=== PATIENT | male | born 1955 | race Caucasian/White ===

== ENCOUNTER 2022-12-09 22:19 | Emergency (ER) | payer MEDICARE, OTHER, SELFPAY ==
--- NOTE | ~2022-12-09 | CT_ITS ---
EXAMINATION: CT brain wo con DATE: 12/10/2022 01:06 INDICATION: Fall. Head laceration. One episode of emesis. TECHNIQUE: Computed tomography (CT) of the head was performed without intravenous contrast. The mA wa s adjusted according to patient size. Iterative reconstruction technique was employed. Exam dose: 60 5.33 mGy-cm total exam DLP. COMPARISON: 08/01/2003 CT brain FINDINGS: No intracranial mass lesion or hemorrhage or cerebrovascular accident is detected. No midli ne shift or mass effect. Intracranial cerebral atherosclerosis is noted. Is nonspecific diminished attenuation of the cerebral white matter, likely due to chronic small vessel ischemic changes. No subdural or epidural hematoma is detected. Mild right frontal cephalohematoma. Numerous subcutaneous calcifications of the scalp, also present on 08/01/2003, chronic. No fracture or bone destruction of the cranial vault. The mastoid air cells and included paranasal sinuses are tonya lly developed and aerated. IMPRESSION: Mild right lateral frontal cephalohematoma No coup or contrecoup intracranial injury or other acute intracranial finding is noted. Reviewed, dictated and finalized at [facility]. Reviewed, dictated and finalized at [facility]. IMPRESSION: Mild right lateral frontal cephalohematoma No coup or contrecoup intracranial injury or other acute intracranial finding i s noted.
[2022-12-09 22:27] VITALS: BP 149/82; PULSE 70; RESP 18; TEMP 36.5; O2SAT 97
[2022-12-10] VITALS (14 sets, daily range): BP systolic 119–149; BP diastolic 75–94; PULSE 66–96; RESP 14–20; O2SAT 93–98
--- NOTE | 2022-12-10 00:37 | PC.NURSE ---
This RN ambulated pt back to room. Upon getting dressed into gown pt has large bile emesis. Pt states he has not been sick. Pt not currently having any pain. Pt denies loc after fall and denies being on blood thinners. Pt a&o x4. Santi PHILIP made aware.
[2022-12-10] MEDS: LIDO 1%/EPINEPHRINE 1:100,000 20 ML VIAL 10 ML INFILTRATE (00:52)
--- NOTE | 2022-12-10 01:52 | ED.GENADULT ---
HPI - General Adult General Chief complaint: Wound/Laceration <KEVIN Davis Last Filed: 12/10/22 03:13> Stated complaint: head injury, head lac, No LOC <KEVIN Davis Last Filed: 12/10/22 03:13> Time Seen by Provider: 12/10/22 00:30 <Santi Norris PA-C - Last Filed: 12/10/22 03:13> Source: patient <KEVIN Davis Last Filed: 12/10/22 03:13> Mode of arrival: ambulatory <KEVIN Davis Last Filed: 12/10/22 03:13> Limitations: no limitations <Santi Norris PA-C - Last Filed: 12/10/22 03:13> History of Present Illness HPI narrative: This is a 67-year-old male with PMH of sciatica who presents to the ED with chief complaint of a head injury that occurred just prior to arrival. Patient states that he was walking from the bathroom back to bed when he felt his left foot get caught and it caused him to go down headfirst into the corner of the dresser. He reports a laceration to the left side of the forehead. Denies LOC. Denies any subsequent numbness, weakness or any further site of pain or injury. He does not take blood thinners. Well patient is being evaluated by nursing, he did have an episode of emesis. Patient denies any current nausea at this point. <Santi Norris PA-C - Last Filed: 12/10/22 03:13> Related Data Allergies/adverse reactions: Allergies Allergy/AdvReac Type Severity Reaction Status Date / Time No Known Allergies Allergy Verified 12/09/22 22:36 <KEVIN Davis Last Filed: 12/10/22 03:13> Review of Systems Review of Systems: All systems as dictated in HPI <KEVIN Davis Last Filed: 12/10/22 03:13> Exam Narrative: GENERAL: Well-appearing, well-nourished, and in no acute distress. HEAD: Normocephalic, atraumatic. EYES: PERRLA and EOMI. ENT: Nares clear, no rhinorrhea or epistaxis. Mucous membranes moist. Oropharynx without tonsillar hypertrophy exudate or other lesions. NECK: Supple. No adenopathy or masses. CHEST: No respiratory distress. Clear to auscultation. No wheezes rales or rhonchi HEART: Regular rate and rhythm. No murmur heard. Normal peripheral pulses. ABDOMEN: Soft, nontender, nondistended, normal active bowel sounds. MSK: Normal range of motion. No edema. SKIN: There is a 2.5 cm linear laceration to the right forehead. Bleeding controlled. NEURO: Alert and oriented x3. No focal deficits. 5 out of 5 strength and sensation in the upper and lower extremities. PSYCH: Normal mood and affect. <Santi Norris PA-C - Last Filed: 12/10/22 03:13> Course P[employer]ED SUPERVISOR/PA Physician Supervision I agree with midlevel documentation; I performed the medical decision making component of this evaluation. Ct scans pending <Nidhi Phelps MD - Last Filed: 12/10/22 06:19> Reevaluation(s) Reevaluation #1: I evaluated the patient. He is resting comfortably. I looked at CT head which is grossly unremarkable. Waiting for radiologist final report. <Nidhi Phelps MD - Last Filed: 12/10/22 06:19> Vital Signs Vital signs: Vital Signs Temperature 36.5 C 12/09/22 22:27 Pulse Rate 70 12/09/22 22:27 Respiratory Rate 18 12/09/22 22:27 Blood Pressure 149/82 H 12/09/22 22:27 Pulse Oximetry 97 12/09/22 22:27 Oxygen Delivery Room Air 12/09/22 22:27 Temperature 36.5 C 12/09/22 22:27 Pulse Rate 75 12/10/22 04:31 Respiratory Rate 16 12/10/22 04:31 Blood Pressure 119/77 12/10/22 04:31 Pulse Oximetry 96 12/10/22 04:31 Oxygen Delivery Room Air 12/10/22 00:28 <Santi Norris PA-C - Last Filed: 12/10/22 03:13> Vital Signs Temperature 36.5 C 12/09/22 22:27 Pulse Rate 70 12/09/22 22:27 Respiratory Rate 18 12/09/22 22:27 Blood Pressure 149/82 H 12/09/22 22:27 Pulse Oximetry 97 12/09/22 22:27 Oxygen Delivery Room Air 12/09/22 22:27 Temperature 36.5 C 12/09/22 22:27 Pulse Rate 75 12/10/22 04:31 Respiratory Rate 16
== END 2022-12-10 06:25 | disposition home or self-care (01) ==
PROVIDERS: Emergency Provider Emergency Medicine; PCP Nurse Practitioner
DX: S01.01XA Laceration without foreign body of scalp, initial encounter (principal); W01.190A Fall on same level from slipping, tripping and stumbling with subsequent striking against furniture, initial encounter
CPT/HCPCS: 12011; 70450; 99284